=== PATIENT | female | born 1975 | race Caucasian/White ===

== ENCOUNTER 2023-04-30 21:17 | Emergency (ER) | payer BC ==
[2023-04-30 21:29] VITALS: TEMP 98; BMI 32.3
[2023-04-30] MEDS ORDERED: METOCLOPRAMIDE HCL INJECTION 10 MG/2 ML VIAL ONE (21:57)
[2023-04-30] MEDS ORDERED: HYDROmorphone HCl 2 MG/ML VIAL ONE ×2 (21:57→22:30)
[2023-04-30] MEDS ORDERED: ACETAMINOPHEN INJECTION 100 ML IVPB ONE (21:57)
[2023-04-30] MEDS ORDERED: FAMOTIDINE 20 MG/50 ML IVPB 20 MG/50 ML MG IVPB ONE (21:57)
[2023-04-30] MEDS: HYDROmorphone HCl 2 MG/ML VIAL IVPUSH ONE ×2 (22:10→22:40)
[2023-04-30] MEDS: METOCLOPRAMIDE HCL INJECTION 10 MG/2 ML VIAL IVPUSH ONE (22:10)
[2023-04-30 22:21] LABS: BASO % 0.8 % (0-2.0); EOS % 1.5 % (0-4.5); HEMATOCRIT 43.2 % (32.4-45.2); HEMOGLOBIN 15.2 GM/dL (10.7-15.3); LYMPH % 32.9 % (8-40); MCH 31.1 pg (25.7-33.7); MCHC 35.1 g/dl (32.0-36.0); MEAN CELL VOLUME 88.5 fl (80-96); MEAN PLT VOLUME 9.2 fl (7.5-11.1); MONO % 5.7 % (3.8-10.2); NEUT % 59.1 % (42.8-82.8); PLATELET COUNT 434 10^3/uL (134-434); RBC 4.88 M/mm3 (3.60-5.2); RDW 14.3 % (11.6-15.6); WHITE BLOOD COUNT 8.1 K/mm3 (4.0-10.0)
[2023-04-30 22:28] LABS: INR 1.04 (0.83-1.09); PROTHROMBIN TIME (PATIENT) 12.1 SEC (9.7-13.0)
[2023-04-30 22:31] LABS: ACTIVATED PTT 27.2 SECONDS (25.2-36.5)
[2023-04-30 22:39] LABS: POTASSIUM 4.3 mmol/L (3.5-5.1)
[2023-04-30] MEDS: ACETAMINOPHEN 1000 MG/100 ML BAG IVPB ONE (22:39)
[2023-04-30] MEDS: SODIUM CHLORIDE 1,000 ML IV STA (22:39)
[2023-04-30] MEDS: FAMOTIDINE 20 MG/50 ML IVPB 20 MG/50 ML MG IVPB ONE (22:40)
[2023-04-30 22:41] LABS: ALBUMIN 4.2 g/dl (3.4-5.0); CALCIUM 10.3 mg/dL (8.5-10.1)
[2023-04-30 22:42] LABS: BLOOD UREA NITROGEN 16.8 mg/dL (7-18)
[2023-04-30 22:46] LABS: BILIRUBIN,TOTAL 0.8 mg/dL (0.2-1); TOT PROT 7.5 g/dl (6.4-8.2)
[2023-05-01 00:58] LABS: PH,URINE 8.5 (5.0-8.0); URINE APPEARANCE CLEAR; URINE BILIRUBIN NEGATIVE (NEGATIVE); URINE COLOR YELLOW; URINE GLUCOSE (UA) NEGATIVE (NEGATIVE); URINE KETONE 2+ (NEGATIVE); URINE LEUK ESTERASE NEGATIVE (NEGATIVE); URINE NITRITE NEGATIVE (NEGATIVE); URINE PROTEIN TRACE (NEGATIVE); URINE UROBILINOGEN 0.2 mg/dL (0.2-1.0)
[2023-05-01 01:19] VITALS: BP 137/87; PULSE 84; RESP 16
== END 2023-05-01 01:23 | disposition home or self-care (01) ==
LOC: JER 21:17
PROC: 3E033GC Introduction of Other Therapeutic Substance into Peripheral Vein, Percutaneous Approach (ICD-10-PCS; principal; 2023-04-30)
PROC: 3E033NZ Introduction of Analgesics, Hypnotics, Sedatives into Peripheral Vein, Percutaneous Approach (ICD-10-PCS; 2023-04-30)
PROC: 3E033GC Introduction of Other Therapeutic Substance into Peripheral Vein, Percutaneous Approach (ICD-10-PCS; 2023-04-30)
PROC: 3E033GC Introduction of Other Therapeutic Substance into Peripheral Vein, Percutaneous Approach (ICD-10-PCS; 2023-04-30)
PROC: 3E033GC Introduction of Other Therapeutic Substance into Peripheral Vein, Percutaneous Approach (ICD-10-PCS; 2023-04-30)
DX: R10.13 Epigastric pain (principal); R07.9 Chest pain, unspecified; R11.2 Nausea with vomiting, unspecified; R10.84 Generalized abdominal pain; Z20.822 Contact with and (suspected) exposure to COVID-19
CPT/HCPCS: 0241U-QW; 36415; 71045-TC-FY; 71275-TC; 74174-TC; 76705-TC; 80053; 81003; 83605; 83690; 84484; 84702; 85025; 85610; 85730; 86850; 86900; 86901; 87086; 87186; 93005; 93010; 99285-25; J0131; Q9967

== ENCOUNTER 2023-05-01 10:49 | Emergency (ER) | payer BC ==
[2023-05-01 11:02] VITALS: BP 161/129; PULSE 111; RESP 18; TEMP 98.6; BMI 32.3
[2023-05-01] MEDS ORDERED: ACETAMINOPHEN INJECTION 100 ML IVPB ONE ×2 (13:35→13:45)
[2023-05-01] MEDS ORDERED: FAMOTIDINE 20 MG/50 ML IVPB 20 MG/50 ML MG IVPB ONE (13:35)
[2023-05-01] MEDS ORDERED: METOCLOPRAMIDE HCL INJECTION 10 MG/2 ML VIAL ONE ×3 (13:35→16:57)
[2023-05-01 13:51] LABS: BASO % 0.5 % (0-2.0); EOS % 0.4 % (0-4.5); HEMATOCRIT 41.7 % (32.4-45.2); HEMOGLOBIN 14.6 GM/dL (10.7-15.3); LYMPH % 16.1 % (8-40); MCH 30.8 pg (25.7-33.7); MEAN CELL VOLUME 88.1 fl (80-96); MONO % 5.6 % (3.8-10.2); NEUT % 77.4 % (42.8-82.8); PLATELET COUNT 396 10^3/uL (134-434); RBC 4.73 M/mm3 (3.60-5.2); RDW 14.1 % (11.6-15.6); WHITE BLOOD COUNT 13.2 K/mm3 (4.0-10.0)
[2023-05-01] MEDS: LACTATED RINGERS SOLUTION 1000 ML INFUS.BAG IV ONE (13:51)
[2023-05-01] MEDS: ACETAMINOPHEN 1000 MG/100 ML BAG IVPB ONE (13:51)
[2023-05-01] MEDS: FAMOTIDINE 20 MG/50 ML IVPB 20 MG/50 ML MG IVPB ONE (13:52)
[2023-05-01] MEDS: METOCLOPRAMIDE HCL INJECTION 10 MG/2 ML VIAL IVPUSH ONE ×2 (13:52→16:49)
[2023-05-01 14:00] LABS: VENOUS BASE EXCESS -0.4 mmol/L (-2-2); VENOUS O2 SATURATION 99.5 % (70-80); VENOUS PCO2 19.2 mmHg (38-52)
[2023-05-01 14:07] LABS: VENOUS PH 7.602 (7.310-7.410)
[2023-05-01 14:23] LABS: POTASSIUM 3.5 mmol/L (3.5-5.1)
[2023-05-01 14:26] LABS: ALBUMIN 4.4 g/dl (3.4-5.0); BLOOD UREA NITROGEN 15.8 mg/dL (7-18); CALCIUM 10.5 mg/dL (8.5-10.1)
[2023-05-01 14:28] LABS: CREATININE 0.9 mg/dL (0.55-1.3)
[2023-05-01 14:30] LABS: BILIRUBIN,TOTAL 0.8 mg/dL (0.2-1); TOT PROT 7.4 g/dl (6.4-8.2)
[2023-05-01 14:35] LABS: LACTIC ACID 2.2 mmol/L (0.4-2.0)
[2023-05-01 16:57] LABS: VENOUS BASE EXCESS 0.4 mmol/L (-2-2); VENOUS O2 SATURATION 97.3 % (70-80); VENOUS PCO2 32.4 mmHg (38-52); VENOUS PH 7.473 (7.310-7.410)
[2023-05-01] MEDS: KETOROLAC TROMETHAMINE 15 MG/ML VIAL IVPUSH ONE (17:29)
[2023-05-01] MEDS ORDERED: KETOROLAC TROMETHAMINE 15 MG/ML VIAL ONE (17:34)
== END 2023-05-01 20:17 | disposition left against medical advice (07) ==
LOC: JER 10:49
PROC: 3E033GC Introduction of Other Therapeutic Substance into Peripheral Vein, Percutaneous Approach (ICD-10-PCS; principal; 2023-05-01)
PROC: 3E033GC Introduction of Other Therapeutic Substance into Peripheral Vein, Percutaneous Approach (ICD-10-PCS; 2023-05-01)
PROC: 3E033GC Introduction of Other Therapeutic Substance into Peripheral Vein, Percutaneous Approach (ICD-10-PCS; 2023-05-01)
PROC: 3E033GC Introduction of Other Therapeutic Substance into Peripheral Vein, Percutaneous Approach (ICD-10-PCS; 2023-05-01)
PROC: 3E033GC Introduction of Other Therapeutic Substance into Peripheral Vein, Percutaneous Approach (ICD-10-PCS; 2023-05-01)
PROC: 3E033GC Introduction of Other Therapeutic Substance into Peripheral Vein, Percutaneous Approach (ICD-10-PCS; 2023-05-01)
DX: R06.02 Shortness of breath (principal); R10.13 Epigastric pain
CPT/HCPCS: 36415; 80053; 82803; 83605; 83690; 84484; 85025; 93005; 93010; 99284-25; J0131

== ENCOUNTER 2023-05-02 14:45 | Observation (INO) | payer BC ==
[2023-05-02] MEDS ORDERED: ONDANSETRON 4 MG/2 ML VIAL IVPUSH PRN (15:17)
[2023-05-02] MEDS: HYDROmorphone HCl 2 MG/ML VIAL IVPUSH ONE (15:20)
[2023-05-02] MEDS ORDERED: HYDROmorphone HCL/PF 1 MG/ML VIAL ONE (15:29)
[2023-05-02] MEDS ORDERED: ACETAMINOPHEN INJECTION 100 ML IVPB ONE (15:29)
[2023-05-02] MEDS ORDERED: FAMOTIDINE 20 MG/50 ML IVPB 20 MG/50 ML MG IVPB ONE (15:29)
[2023-05-02 15:35] LABS: HEMATOCRIT 41.2 % (32.4-45.2); MCH 30.1 pg (25.7-33.7); MCHC 33.9 g/dl (32.0-36.0); MEAN CELL VOLUME 88.9 fl (80-96); MEAN PLT VOLUME 8.9 fl (7.5-11.1); PLATELET COUNT 350.7 10^3/uL (134-434); RBC 4.64 10^6/uL (3.60-5.2); RDW 14.6 % (11.6-15.6); WHITE BLOOD COUNT 10.1 10^3/uL (4.0-10.8)
[2023-05-02] MEDS: ONDANSETRON 4 MG/2 ML VIAL IVPUSH ONE (15:40)
[2023-05-02] MEDS: FAMOTIDINE 20 MG/50 ML IVPB 20 MG/50 ML MG IVPB ONE (15:40)
[2023-05-02] MEDS: ACETAMINOPHEN 1000 MG/100 ML BAG IVPB ONE (15:40)
[2023-05-02] MEDS: HYDROmorphone HCL 2 MG TABLET PO PRN (15:42)
[2023-05-02 15:43] LABS: ALBUMIN 4.6 g/dl (3.4-5.0); BILIRUBIN,TOTAL 0.8 mg/dl (0.2-1); CALCIUM 9.9 mg/dl (8.5-10.1); CREATININE 0.8 mg/dl (0.6-1.3); PLATELET ESTIMATE ADEQUATE; POTASSIUM 3.3 mmol/L (3.5-5.1); TOT PROT 6.8 g/dl (6.4-8.2)
[2023-05-02] MEDS ORDERED: HYDROmorphone HCL 2 MG TABLET ONE (16:56)
[2023-05-02 18:14] VITALS: BMI 32.3
[2023-05-02] MEDS: POTASSIUM CHLORIDE TABS 10 MEQ TABLET.ER (FP) PO ONE (18:44)
[2023-05-02] MEDS: METOCLOPRAMIDE HCL INJECTION 10 MG/2 ML VIAL IVPUSH SCH (18:53)
[2023-05-02] MEDS: PANTOPRAZOLE SODIUM 40 MG VIAL IVPUSH SCH (21:15)
[2023-05-02] MEDS: ACETAMINOPHEN 1000 MG/100 ML BAG IVPB PRN (21:47)
[2023-05-02] MEDS: LORazepam 2 MG/ML SDV VIAL IVPUSH PRN (21:54)
[2023-05-02] MEDS: KETOROLAC TROMETHAMINE 30 MG/1 ML VIAL IVPUSH PRN (22:10)
[2023-05-02] MEDS ORDERED: DEXTROSE 5%-0.45% SALINE 1,000 ML with POTASSIUM CHLORIDE 30 MEQ IV SCH (22:16)
[2023-05-02] MEDS: POTASSIUM CHLORIDE 30 MEQ in DEXTROSE 5%-0.45% SALINE 1,000 ML IV SCH (23:20)
[2023-05-03] MEDS: LORazepam 2 MG/ML SDV VIAL IVPUSH ONE (02:58)
[2023-05-03] MEDS: D5-1/2NS+30 MEQ KCL - 30 MEQ/1,000 ML INFUS.BAG IV SCH (07:09)
[2023-05-03] MEDS: LORazepam 2 MG/ML SDV VIAL IVPUSH PRN ×2 (08:39→13:54)
[2023-05-03 09:13] LABS: ALBUMIN 4.5 g/dl (3.4-5.0); BILIRUBIN,TOTAL 0.8 mg/dl (0.2-1); CALCIUM 9.5 mg/dl (8.5-10.1); CREATININE 0.7 mg/dl (0.6-1.3); POTASSIUM 3.5 mmol/L (3.5-5.1); TOT PROT 6.7 g/dl (6.4-8.2)
[2023-05-03 09:38] LABS: BASO % 0.6 % (0-2.0); EOS % 0.1 % (0-4.5); HEMATOCRIT 39.4 % (32.4-45.2); HEMOGLOBIN 13.8 GM/dL (10.7-15.3); LYMPH % 24.6 % (8-40); MCH 30.9 pg (25.7-33.7); MCHC 35.1 g/dl (32.0-36.0); MEAN CELL VOLUME 87.9 fl (80-96); MEAN PLT VOLUME 8.9 fl (7.5-11.1); MONO % 9.4 % (3.8-10.2); NEUT % 65.3 % (42.8-82.8); PLATELET COUNT 349 10^3/uL (134-434); RBC 4.48 M/mm3 (3.60-5.2); RDW 13.7 % (11.6-15.6); WHITE BLOOD COUNT 8.8 K/mm3 (4.0-10.0)
[2023-05-03] MEDS: METOCLOPRAMIDE HCL 10 MG TABLET (FP) PO SCH (10:58)
[2023-05-03] MEDS: HYDROCHLOROTHIAZIDE 25 MG TABLET (FP) PO ONE (16:53)
[2023-05-03] MEDS: LOSARTAN POTASSIUM 50 MG TABLET PO ONE (16:53)
[2023-05-04 08:57] LABS: HEMATOCRIT 42.4 % (32.4-45.2); HEMOGLOBIN 14.6 G/dL (10.7-15.3); MCH 30.8 pg (25.7-33.7); MCHC 34.5 g/dl (32.0-36.0); MEAN CELL VOLUME 89.4 fl (80-96); MEAN PLT VOLUME 8.8 fl (7.5-11.1); PLATELET COUNT 303.3 10^3/uL (134-434); RBC 4.74 10^6/uL (3.60-5.2); RDW 14.4 % (11.6-15.6); WHITE BLOOD COUNT 7.2 10^3/uL (4.0-10.8)
[2023-05-04 09:21] LABS: PLATELET ESTIMATE ADEQUATE
[2023-05-04] MEDS: HYDROCHLOROTHIAZIDE 12.5 MG CAPSULE (FP) PO SCH (09:36)
[2023-05-04] MEDS: LOSARTAN POTASSIUM 50 MG TABLET PO SCH (09:36)
[2023-05-04 09:38] LABS: ALBUMIN 4.4 g/dl (3.4-5.0); BILIRUBIN,TOTAL 1.2 mg/dl (0.2-1); CALCIUM 9.5 mg/dl (8.5-10.1); CREATININE 0.7 mg/dl (0.6-1.3); POTASSIUM 3.3 mmol/L (3.5-5.1); TOT PROT 6.5 g/dl (6.4-8.2)
[2023-05-04 12:41] VITALS: BP 160/98; PULSE 88; RESP 18; TEMP 98.7
[2023-05-04] MEDS ORDERED: buPROPion HCL 75 MG TABLET PO SCH (22:00)
== END 2023-05-04 12:41 | disposition home or self-care (01) ==
LOC: FER 14:45 → UNDOADMOB 15:34 → FM/S 15:34
PROVIDERS: ADMIT Family Medicine; ATTEND Family Medicine
PROC: 3E033NZ Introduction of Analgesics, Hypnotics, Sedatives into Peripheral Vein, Percutaneous Approach (ICD-10-PCS; principal; 2023-05-03)
PROC: 3E033GC Introduction of Other Therapeutic Substance into Peripheral Vein, Percutaneous Approach (ICD-10-PCS; 2023-05-03)
PROC: 3E0333Z Introduction of Anti-inflammatory into Peripheral Vein, Percutaneous Approach (ICD-10-PCS; 2023-05-03)
DX: K92.0 Hematemesis (principal); F41.9 Anxiety disorder, unspecified; R10.9 Unspecified abdominal pain; I10 Essential (primary) hypertension; F17.200 Nicotine dependence, unspecified, uncomplicated
CPT/HCPCS: 36415; 71045-TC-FY; 76700-TC; 80053; 83690; 85025; 85027; 99285-25; G0378; J0131